=== PATIENT | male | born 1980 | race African-American/Black ===

== ENCOUNTER → 2023-08-16 | Emergency (ER) | payer OTHER ==
[~2023-08-16] MED LIST: CIPROFLOXACIN 400mg IV 400 MG/200 ML BAG IV ONE; KETOROLAC 30 MG/ML INJ ONE; METHYLPREDNISOLONE 125 MG INJ ONE; METRONIDAZOLE 500mg IVPB 500 MG/100 ML BAG IV ONE; MORPHINE 4 MG/ML SYR IV ONE; ONDANSETRON 4 MG/2 ML VIAL IV ONE
[2023-08-16 12:46] LABS: Albumin 3.5 g/dL (3.4-5.0); Albumin/Globulin Ratio 0.9 (1.1-1.8); Anion Gap 8.2 mEq/L (5.0-15.0); Bilirubin Total 0.4 mg/dL (0.2-1.0); Globulin 3.9 g/dL (2.3-3.5); Potassium 4.2 mEq/L (3.5-5.1); Protein, Total 7.4 g/dL (6.4-8.2)
[2023-08-16 12:51] LABS: Absolute Eosinophils 0.3 K/uL (0-0.5); Absolute Lymphocytes (CBC) 1.6 K/uL (0.7-4.9); Absolute Monocytes 0.5 K/uL (0.1-1.3); Absolute Neutrophil 3.2 K/uL (1.8-8.0); Basophils % 0.3 % (0-1.3); Eosinophils % 5.7 % (0-4.4); Hematocrit 39.2 % (39.6-49.0); Lymphocytes % 28.6 % (15.3-44.8); MCH 26.9 pg (27.0-35.0); MCHC 33.1 g/dL (32.0-36.0); MCV 81.3 fL (80-100); MPV 6.9 fL (7.6-11.3); Monocytes % 8.4 % (3.3-12.3); Nucleated Red Blood Cells % 0.1 % (0-0); Platelets 233 thou/uL (152-406); RBC Red Blood Cell Count 4.82 M/uL (4.33-5.43); Red Cell Distribution Width 14.1 % (12.1-15.2)
--- NOTE | 2023-08-16 13:48 | RAD REPORT ---
EXAM DESCRIPTION: CTAbdomen Pelvis W Contrast - 08/16/2023 1:23 pm CLINICAL HISTORY: Abdominal pain. eval for diverticulitis;Abd pain COMPARISON: No comparisons TECHNIQUE: Biphasic CT imaging of the abdomen and pelvis was performed with 100 ml non-ionic IV cont rast. All CT scans are performed using dose optimization technique as appropriate and may include automated exposure control or mA/KV adjustment according to patient size. FINDINGS: The lung bases are clear. The liver, spleen, pancreas, adrenal glands and kidneys are within normal limits. No bowel obstruction, free air, free fluid or abscess. A focal outpouching is seen anteriorly from th e sigmoid colon along the midline of the pelvis abutting the cyst anterior superior margin of the uri nary bladder with slight inflammation. The appendix is normal. No evidence of significant lymphadeno manuel. No suspicious bony findings. IMPRESSION: Focal outpouching is seen anterior sigmoid colon along the midline which abuts the urina ry bladder. No fat plane is seen between the bowel and urinary bladder and this could indicate a fist soy. Mild inflammation is seen in the region. Followup colonoscopy for direct visualization of this r egion of the colon would be helpful.
--- NOTE | 2023-08-16 15:56 | EDPHYS ---
Physician Documentation [facility] Name: Tho Pedraza Age: 42 yrs Sex: Male : 1980 Arrival Date: 08/16/2023 Time: 11:57 Bed 14 Private MD: ED Physician Severo Ceballos HPI: 08/15 12:07 This 42 yrs old Black Male presents to ER via Unassigned with complaints of Abdominal rn Pain. 12:07 The patient presents with abdominal pain in the lower abdomen. Onset: The rn symptoms/episode began/occurred at an unknown time. Associated signs and symptoms: Pertinent positives: constipation, nausea, Pertinent negatives: blood in stools, fever. The symptoms are described as crampy, intermittent. Modifying factors: The symptoms are alleviated by nothing, the symptoms are aggravated by nothing. Severity of pain: At its worst the pain was mild in the emergency department the pain is unchanged. The patient has experienced a previous episode. Pt reports LLQ abd pain, unsure when started but worse today, assoc with constipation. Has had diverticulitis and pancreatitis in past. . Historical: - Allergies: 12:08 No Known Allergies; kc6 - PMHx: 12:08 Hypertensive disorder; Hypercholesterolemia; Seizure; kc6 - PSHx: 12:08 None; kc6 - Immunization history:: Adult Immunizations not up to date. - Social history:: Smoking status: Patient denies any tobacco usage or history of. - Family history:: not pertinent. - Hospitalizations: : No recent hospitalization is reported. ROS: 12:07 Constitutional: Negative for fever, chills, and weight loss, Cardiovascular: Negative rn for chest pain, palpitations, and edema, Respiratory: Negative for shortness of breath, cough, wheezing, and pleuritic chest pain, Abdomen/GI: + abd pain and constipation Back: Negative for injury and pain, MS/Extremity: Negative for injury and deformity, Skin: Negative for injury, rash, and discoloration, Neuro: Negative for headache, weakness, numbness, tingling, and seizure, Exam: 12:07 Constitutional: This is a well developed, well nourished patient who is awake, alert, rn and in no acute distress. Cardiovascular: Regular rate and rhythm. No pulse deficits. Respiratory: No increased work of breathing, no retractions or nasal flaring. Abdomen/GI: soft, + LLQ tenderness, no rebound MS/ Extremity: Pulses equal, no cyanosis. Neuro: Awake and alert, GCS 15 Vital Signs: 12:05 BP 171 / 107; Pulse 75; Resp 16; Temp 98(O); Pulse Ox 100% on R/A; Weight 94.8 kg (R); kc6 Height 5 ft. 9 in. (R); 13:35 BP 172 / 103; Pulse 70; Resp 18 S; Pulse Ox 98% on R/A; Pain 8/10; kc6 14:51 BP 160 / 107; Pulse 75; Resp 17 S; Pulse Ox 100% on R/A; kc6 16:27 BP 170 / 102; Pulse 65; Resp 16 S; Pulse Ox 98% on R/A; kc6 12:05 Body Mass Index 30.86 (94.80 kg, 175.26 cm) kc6 13:35 Pain Scale: Adult kc6 MDM: 12:04 Patient medically screened. rn 14:49 ED course: CT shows possible fistula forming from colon to bladder. For now will place rn on antibiotics and discharged to [facility]. Instructions to follow-up with colorectal surgery and return precautions given and understood. Patient states he is out of [facility] next year, told him what to look out for if anything worsens before then.. 15:20 Differential diagnosis: appendicitis, bowel obstruction, diverticulitis, gastritis, rn non-specific abd pain, pancreatitis, Peptic Ulcer Disease, Ureterolithiasis. Data reviewed: vital signs, nurses notes, lab test result(s), radiologic studies, CT scan, and as a result, I will discharge patient. Care significantly affected by the following chronic conditions: Hypertension. Counseling: I had a detailed discussion with the patient and/or guardian regarding the historical points, exam findings, and any diagnostic results supporting the discharge/admit diagnosis, lab results, radiology results, the need for outpatient follow up, to return to the emergency department if symptoms worsen or persist or if there are any questions or concerns that arise at home. Special discussion: I discussed with the patient/guardian in detail that at this point there is no indication for admission to the hospital. It is understood, however, that if the symptoms persist or worsen the patient needs to return immediately for re-evaluation. Based on the history and exam findings, there is no indication for further emergent testing or inpatient evaluation. I discussed with the patient/guardian the need to see the payment processor for further evaluation of the symptoms. ED course: Patient with mild diverticulitis at this time. Patient improved after medication here. Instructions given to follow-up as outpatient for possible fistula formation. No indication for emergent admission at this time.. 08/15 12:05 Order name: CBC with Diff rn 08/15 12:05 Order name: CMP rn 08/15 12:05 Order name: Lipase rn 08/15 12:05 Order name: CT Abd/Pelvis - IV Contrast Only rn 08/15 15:54 Order name: CT EDMS 08/15 12:05 Order name: IV Saline Lock; Complete Time: 12:18 rn 08/15 12:05 Order name: Labs collected and sent; Complete Time: 12:18 rn Administered Medications: 13:30 Drug: NS 0.9% IV 1000 ml IV at 1 bolus Per protocol; 1000 mL bolus Route: IV; Rate: 1 kc6 bolus; Site: left antecubital; 16:28 Follow up: Response: No adverse reaction; IV Status: Completed infusion; IV Intake: kc6 1000ml 13:30 Drug: Ondansetron IVP 4 mg IVP once; over 2 minutes Route: IVP; Site: left antecubital; kc6 16:28 Follow up: Response: No adverse reaction kc6 13:30 Drug: morphine IVP or IV 4 mg IVP once over 4 mins Route: IVP; Infused Over: 4 mins; kc6 Site: left antecubital; 16:28 Follow up: Response: No adverse reaction; Pain is decreased; RASS: Alert and Calm (0) kc6 15:06 Drug: Ciprofloxacin IVPB 400 mg 200 ml IVPB once over 60 mins Volume: 200 ml; Route: kc6 IVPB; Infused Over: 60 mins; Site: left antecubital; 16:27 Follow up: Response: No adverse reaction; IV Status: Completed infusion; IV Intake: kc6 200ml 15:06 Drug: metroNIDAZOLE IVPB 500 mg 100 ml IVPB at 200 ml/hr once over 30 mins Volume: 100 kc6 ml; Route: IVPB; Rate: 200 ml/hr; Infused Over: 30 mins; Site: left antecubital; 16:28 Follow up: Response: No adverse reaction; IV Status: Completed infusion; IV Intake: kc6 100ml Disposition Summary: 08/16/23 15:23 Discharge Ordered Notes: Location: Home rn Problem: new rn Symptoms: have improved rn Condition: Stable rn Diagnosis - Diverticulitis of large intestine without perforation or abscess without bleeding rn - Fistula of intestine rn Followup: rn - With: Private Physician - When: As needed - Reason: Recheck today's complaints, Re-evaluation by your physician Discharge Instructions: - Discharge Summary Sheet rn - Diverticulitis rn Forms: - Medication Reconciliation Form rn - Thank You Letter rn - Antibiotic rn integrity - Prescription Opioid Use rn - Patient Portal Instructions rn - Leadership Thank You Letter rn Prescriptions: - Flagyl 500 mg Oral tablet - take 1 tablet ORAL route every 8 hours for 14 days; 42 tablet; Refills: 0, rn Product Selection Permitted - Cipro 500 mg Oral tablet - take 1 tablet ORAL route every 12 hours for 14 days; 28 tablet; Refills: 0, rn Product Selection Permitted - Tramadol 50 mg Oral Tablet - take 1 tablet ORAL route every 8 hours as needed; 12 tablet; Refills: 0, rn Product Selection Permitted Signatures: Dispatcher [employer] Severo Santos MD MD rn Campbell, Kaitlyn, RN RN kc6 Corrections: (The following items were deleted from the chart) 16:10 12:05 Urinalysis+U.LAB.BRZ ordered. KARLADE SHANTA
--- NOTE | 2023-08-16 15:56 | ER ---
Nurse's Notes [facility] Name: Tho Pedraza Age: 42 yrs Sex: Male : 1980 Arrival Date: 08/16/2023 Time: 11:57 Bed 14 Private MD: Diagnosis: Diverticulitis of large intestine without perforation or abscess without bleeding;Fistula of intestine Presentation: 08/15 12:05 Chief complaint: Patient states: VIKKI lower belly pain x1 mo. denies n/v/d. Coronavirus kc6 screen: At this time, the client does not indicate any symptoms associated with coronavirus-19. Ebola Screen: No symptoms or risks identified at this time. Initial Sepsis Screen: Does the patient meet any 2 criteria? No. Patient's initial sepsis screen is negative. Does the patient have a suspected source of infection? No. Patient's initial sepsis screen is negative. Risk Assessment: Do you want to hurt yourself or someone else? Patient reports no desire to harm self or others. Onset of symptoms was August 16, 2023. 12:05 Method Of Arrival: Law Enforcement: [place] [employer] kc6 12:05 Acuity: JENNIFER 3 kc6 Triage Assessment: 12:08 General: Appears in no apparent distress. comfortable, well groomed, well developed, kc6 Behavior is calm, cooperative, appropriate for age. Pain: Complains of pain in right lower quadrant and left lower quadrant. EENT: No signs and/or symptoms were reported regarding the EENT system. Neuro: Level of Consciousness is awake, alert, obeys commands, Oriented to person, place, time, situation, Appropriate for age. Cardiovascular: Capillary refill < 3 seconds. Respiratory: Airway is patent Trachea midline Respiratory effort is even, unlabored, Respiratory pattern is regular, symmetrical. GI: Abdomen is flat, non-distended, Bowel sounds present X 4 quads. Abd is soft X 4 quads Abdomen is tender to palpation in left lower quadrant Patient currently denies diarrhea, nausea, vomiting. : No signs and/or symptoms were reported regarding the genitourinary system. Derm: No signs and/or symptoms reported regarding the dermatologic system. Skin is intact, is healthy with good turgor, Skin is pink, warm \T\ dry. Musculoskeletal: No signs and/or symptoms reported regarding the musculoskeletal system. Circulation, motion, and sensation intact. Capillary refill < 3 seconds, Range of motion: intact in all extremities. Historical: - Allergies: 12:08 No Known Allergies; kc6 - PMHx: 12:08 Hypertensive disorder; Hypercholesterolemia; Seizure; kc6 - PSHx: 12:08 None; kc6 - Immunization history:: Adult Immunizations not up to date. - Social history:: Smoking status: Patient denies any tobacco usage or history of. - Family history:: not pertinent. - Hospitalizations: : No recent hospitalization is reported. Screenin:10 [facility] ED Fall Risk Assessment (Adult) History of falling in the last 3 months, kc6 including since admission No falls in past 3 months (0 pts) Confusion or Disorientation No (0 pts) Intoxicated or Sedated No (0 pts) Impaired Gait No (0 pts) Mobility Assist Device Used No (0 pt) Altered Elimination No (0 pt) Score/Fall Risk Level 0 - 2 = Low Risk. Abuse screen: Denies threats or abuse. Denies injuries from another. Nutritional screening: No deficits noted. Tuberculosis screening: No symptoms or risk factors identified. Assessment: 12:10 Reassessment: please see triage. kc6 13:10 Reassessment: Patient appears in no apparent distress at this time. No changes from kc6 previously documented assessment. Patient and/or family updated on plan of care and expected duration. Pain level reassessed. Patient is alert, oriented x 3, equal unlabored respirations, skin warm/dry/pink. 14:10 Reassessment: Patient appears in no apparent distress at this time. No changes from kc6 previously documented assessment. Patient and/or family updated on plan of care and expected duration. Pain level reassessed. Patient is alert, oriented x 3, equal unlabored respirations, skin warm/dry/pink. 15:10 Reassessment: Patient appears in no apparent distress at this time. No changes from kc6 previously documented assessment. Patient and/or family updated on plan of care and expected duration. Pain level reassessed. Patient is alert, oriented x 3, equal unlabored respirations, skin warm/dry/pink. 15:23 Reassessment: d/c pending IV antibiotic completion. kc6 16:10 Reassessment: Patient appears in no apparent distress at this time. No changes from kc6 previously documented assessment. Patient and/or family updated on plan of care and expected duration. Pain level reassessed. Patient is alert, oriented x 3, equal unlabored respirations, skin warm/dry/pink. Patient denies pain at this time. Patient states feeling better. Patient states symptoms have improved. Vital Signs: 12:05 BP 171 / 107; Pulse 75; Resp 16; Temp 98(O); Pulse Ox 100% on R/A; Weight 94.8 kg (R); kc6 Height 5 ft. 9 in. (R); 13:35 BP 172 / 103; Pulse 70; Resp 18 S; Pulse Ox 98% on R/A; Pain 8/10; kc6 14:51 BP 160 / 107; Pulse 75; Resp 17 S; Pulse Ox 100% on R/A; kc6 16:27 BP 170 / 102; Pulse 65; Resp 16 S; Pulse Ox 98% on R/A; kc6 12:05 Body Mass Index 30.86 (94.80 kg, 175.26 cm) kc6 13:35 Pain Scale: Adult kc6 ED Course: 12:03 Patient arrived in ED. rn 12:04 Severo Ceballos MD is Attending Physician. rn 12:05 Tonia Rodriguez RN is Primary Nurse. kc6 12:08 Triage completed. kc6 12:08 Arm band placed on. kc6 12:10 Patient has correct armband on for positive identification. Bed in low position. Call kc6 light in reach. Side rails up X2. Security at bedside. Client placed on continuous cardiac and pulse oximetry monitoring. NIBP monitoring applied. 12:10 Patient maintains SpO2 saturation greater than 95% on room air. kc6 12:10 Inserted saline lock: 20 gauge in left antecubital area, using aseptic technique. Blood kc6 collected. 15:55 CT In Process Unspecified. EDMS 16:27 No provider procedures requiring assistance completed. IV discontinued, intact, kc6 bleeding controlled, No redness/swelling at site. Pressure dressing applied. Administered Medications: 13:30 Drug: NS 0.9% IV 1000 ml IV at 1 bolus Per protocol; 1000 mL bolus Route: IV; Rate: 1 kc6 bolus; Site: left antecubital; 16:28 Follow up: Response: No adverse reaction; IV Status: Completed infusion; IV Intake: kc6 1000ml 13:30 Drug: Ondansetron IVP 4 mg IVP once; over 2 minutes Route: IVP; Site: left antecubital; kc6 16:28 Follow up: Response: No adverse reaction kc6 13:30 Drug: morphine IVP or IV 4 mg IVP once over 4 mins Route: IVP; Infused Over: 4 mins; kc6 Site: left antecubital; 16:28 Follow up: Response: No adverse reaction; Pain is decreased; RASS: Alert and Calm (0) kc6 15:06 Drug: Ciprofloxacin IVPB 400 mg 200 ml IVPB once over 60 mins Volume: 200 ml; Route: kc6 IVPB; Infused Over: 60 mins; Site: left antecubital; 16:27 Follow up: Response: No adverse reaction; IV Status: Completed infusion; IV Intake: kc6 200ml 15:06 Drug: metroNIDAZOLE IVPB 500 mg 100 ml IVPB at 200 ml/hr once over 30 mins Volume: 100 kc6 ml; Route: IVPB; Rate: 200 ml/hr; Infused Over: 30 mins; Site: left antecubital; 16:28 Follow up: Response: No adverse reaction; IV Status: Completed infusion; IV Intake: kc6 100ml Medication: 16:29 VIS not applicable for this client. kc6 Intake: 16:27 IV: 200ml; Total: 200ml. kc6 16:28 IV: 100ml; Total: 300ml. kc6 16:28 IV: 1000ml; Total: 1300ml. kc6 Outcome: 15:23 Discharge ordered by . rn 16:29 Discharged to Law Enforcement kc6 16:29 Condition: improved 16:29 Discharge instructions given to patient, Instructed on discharge instructions, follow up and referral plans. medication usage, Demonstrated understanding of instructions, follow-up care, medications, Prescriptions given X 3, 16:29 Patient left the ED. kc6 Signatures: Dispatcher [employer] EDSevero Weber MD MD rn Campbell, Kaitlyn, RN RN kc6
[2023-08-16 18:36] VITALS: BP 170/102; TEMP 98; O2SAT 98
== END ==
LOC: ER 11:57
DX: K57.32 Diverticulitis of large intestine without perforation or abscess without bleeding (principal); K63.2 Fistula of intestine
CPT/HCPCS: 85025; 36415; 83690; 80053; 74177; Q9967; J0744